=== PATIENT | female | born 1935 | race Caucasian/White ===

== ENCOUNTER → 2016-03-25 | Outpatient (CLI) | payer OTHER ==
[~2016-03-25] MED LIST: BRIM0.2S4 EACH EYE; TIMO0.5S30 EACH EYE
--- NOTE | 2016-03-26 09:05 | RSPPFT ---
DATE OF PROCEDURE: 03/25/16 COMMENTS: VOLUMES DYNAMIC: FVC and FEV1 moderately reduced. STATIC: TLC mildly increased; VTG and RV severely increased. FLOWS: FEV1% moderately reduced; FEF 25-75 severely reduced. DIFFUSION: Mildly reduced. FLOW VOLUME LOOP: Pattern of variable intrathoracic airways obstruction. IMPRESSION: Moderately severe obstructive ventilatory defect with reduction in diffusion consistent with emphysema. Significant hyperinflation is present and a mild increase in airways resistance. No significant improvements post-bronchodilator.
== END ==
LOC: HRSP 13:10
PROVIDERS: ATTEND Internal Medicine
DX: J44.9 Chronic obstructive pulmonary disease, unspecified (principal)
CPT/HCPCS: 94620

== ENCOUNTER 2016-03-31 11:30 | Day surgery (SDC) | payer OTHER ==
--- NOTE | 2016-03-27 15:23 | MH ---
cc: CYNDEE BRANDT R. STEVEN M.D. DATE OF ADMISSION: 03/31/2016 REASON FOR ADMISSION Bronchoscopy. HISTORY OF PRESENT ILLNESS Mrs. Curtis is a 80-year-old white female who presents for an abnormal CT scan. She has an interesting history that dates back at least a decade when she was first found to have an abnormality in the left lower lobe of her lung. We have a CT documenting that as far back as 2007 and she says she has known about it since at least 2003 when she had a breast cancer surgery. She was told at that time it was probably a scar but it has been followed intermittently since then because of her smoking history. Over the last several years it has been followed more carefully and she has had scans in August 2014, February 2015, July 2015 and now again February 2016, and each time this abnormality in the left lower lobe is getting larger and a thick cavity has developed. Throughout all of this she has remained essentially asymptomatic. She was a former smoker of at least [id number]. She quit smoking in 2003 when she had breast cancer. She has no persistent cough or congestion. She has no chest pain. She has never had hemoptysis and she denies shortness of breath. The remainder of her CAT scan is abnormal. She has some scattered ground-glass densities but no masses, no fluid. She has developed no lola infiltrates and she has no adenopathy in the mediastinum or hilum. Biopsies have been recommended in the past but she has refused them. She has been afraid of complications. She is now seeking another opinion regarding what to do because the most recent scan has clearly shown an increase in size and previous PET scans have shown some uptake in this lesion. She has also had two prior cancer, a breast cancer in 2004 resected and then irradiated, no evidence of recurrence to date and then a partial gastrectomy for GIST tumor which was followed by Dr. Jennings and she received chemotherapy for that for two years. No evidence of recurrence of that either at this point. PAST MEDICAL HISTORY 1. Cholecystectomy. 2. Colonic polyps, benign. 3. Diastolic heart failure followed regularly by Dr. Haque. 4. Small ascending aortic aneurysm. ALLERGIES SULFA. MEDICATIONS The only medications are timolol and another eye drop for glaucoma. FAMILY HISTORY Father of cancer of the rectum. Mother of COPD, was a smoker. Has a brother who is in good health. Five children, no serious chronic illnesses. SOCIAL HISTORY , living with her who does not smoke. Her smoking history is noted above. 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 Has been retired since the when they moved to this area from [place]. She spends a considerable amount of time in [place] though during the year with her family. Does not drink alcohol. No unusual animal exposures. REVIEW OF SYSTEMS Weight is stable. Appetite is fine. She has no chest pain. No anginal pain or chronic edema. No reflux symptoms or abdominal complaints. Appetite is fine. She does have some degenerative arthritis. PHYSICAL EXAMINATION VITAL SIGNS: Blood pressure 148/90, pulse 60, temperature 98, respiratory rate 18, sat 98% on room air. HEENT: Sclera anicteric. Pharynx is clear. NECK: Neck veins are flat. No adenopathy in the neck or supraclavicular region. CHEST: Completely clear. HEART: Regular rhythm. No harsh murmur. No peripheral edema or cyanosis. ABDOMEN: Soft. ASSESSMENT AND PLAN I have reviewed this thoroughly with Mrs. Curtis and this lesion in the left lower lobe has been present for probably a decade and it is gradually increased in size but now it is cavitated and there is a solid component to it. As I explained to her this could have certainly started out as a scar many years ago, she said she may have had a traumatic injury to her left chest when she was younger, but clearly it is changing and in light of her prior smoking history both infection and malignancy are of concern. We reviewed the possibilities for further evaluation including bronchoscopy, needle biopsy or surgery, and after thoroughly reviewing risks and benefits particularly of bronchoscopy she is agreeable to proceed with this. Will collect sputum for infectious etiologies as well as biopsies to try to establish a definitive diagnosis. I have reviewed the procedure in simple terms with her so she understands what it involves. We have also discussed risks including but not limited to anesthetic complications, bleeding or pneumothorax. She also understands that this study may not provide a definitive answer and we may have to consider a needle aspiration biopsy or even a surgical removal of this lesion which is clearly increasing in size. Further diagnostic and/or therapeutic intervention will depend on the results of the initial diagnostic studies. We are also scheduling her for PFTs prior to the bronchoscopy. R. MD NOHEMI Carmichael/ABDULLAHI /11:06 AM /3:21 PM
[~2016-03-31] VITALS: Ht 172.7 cm; Wt 60.5 kg
[2016-03-31 11:49] VITALS: BP 139/82; PULSE 54; RESP 20; TEMP 98.3; O2SAT 95
[2016-03-31] MEDS ORDERED: PROPOFOL 200 MG/20 ML AMP IV ONE (12:00)
[2016-03-31] MEDS ORDERED: ONDANSETRON HCL 4 MG/2 ML VIAL IV PUSH ONE (12:00)
[2016-03-31] MEDS ORDERED: ePHEDrine/NS 25 MG/5 ML SYR IV ONE (12:00)
[2016-03-31] MEDS ORDERED: NEOSTIGMINE 3 MG/3 ML SYR IV ONE (12:00)
[2016-03-31] MEDS ORDERED: SODIUM CHLORIDE 0.9% 1000 ML IV SCH (12:15)
[2016-03-31] MEDS ORDERED: LIDOCAINE HCL 4% PF 5 ML AMP OTHER SCH (12:30)
[2016-03-31] MEDS ORDERED: INSULIN HUMAN REGULAR 1,000 UNITS/10 ML VIAL SQ PRN (12:30)
[2016-03-31] MEDS ORDERED: METOPROLOL TARTRATE 25 MG TAB PO PRN (12:30)
[2016-03-31] MEDS ORDERED: RESP: ALBUTEROL CONC 2.5 MG/0.5 ML NEB INH SCH (12:30)
[2016-03-31] MEDS ORDERED: SODIUM CHLORID 0.9% 500 ML IV SCH (13:00)
[2016-03-31] MEDS ORDERED: LACTATED RINGER'S 1000 ML IV SCH (13:00)
[2016-03-31] MEDS ORDERED: SUGAMMADEX SODIUM 200 MG/2 ML VIAL IV PUSH ONE ×4 (13:12→16:01)
[2016-03-31] MEDS ORDERED: MIDAZOLAM HCL 2 MG/2 ML VIAL ONE (13:12)
[2016-03-31] MEDS ORDERED: fentaNYL CITRATE 250 MCG/5 ML AMP ONE (13:12)
[2016-03-31] MEDS ORDERED: EPINEPHrine HCL (1:1000) 1 MG/ML VIAL ONE (13:13)
[2016-03-31] MEDS ORDERED: LIDOCAINE HCL 2% 50 ML VIAL ONE (13:13)
--- NOTE | 2016-03-31 13:50 | RADRPT ---
EXAM DATE/TIME: 03/31/2016 13:00 [facility] COMPARISON: No previous studies available for comparison. INDICATIONS : Pre op to bronchoscopy. RADIATION DOSE: 8.19 CTDIvol (mGy) MEDICAL HISTORY : Carcinoma, breast. Chronic obstructive pulmonary disease. Cardiovascular disease Aortic aneurysm. SURGICAL HISTORY : Cholecystectomy. Tubal ligation. ENCOUNTER: Initial ACUITY: 1 day PAIN SCALE: 0/10 LOCATION: chest TECHNIQUE: Volumetric scanning of the chest was performed using inspiration and expiration protocols. The study is performed using fiduciary markers for virtual bronchoscopy. Using automated exposure control and adjustment of the mA and/or kV according to patient size, radiation dose was kept as low as reasonabl y achievable to obtain optimal diagnostic quality images. FINDINGS: LUNGS: Spiculated mass left lower lobe with cavitation is seen measuring 3.0 x 3.0 cm. Adjacent groundglass densities are noted as well. Thickened wall identified. There are some nodular densities in the left lower lobe posteriorly measuring 6 mm and 2 more inferiorly measuring 4-5 mm. Similar appearing nodul es are seen within the right middle lobe medially. Some groundglass densities are seen throughout the lungs including one in the left upper lobe measuring 1.5 cm and one within the right upper lobe [place] uring 1.9 cm. There is extensive pleural-parenchymal densities in upper lobes extending to the pleura l surface posteriorly PLEURAE: There is no pleural thickening or pleural effusion. MEDIASTINUM: The heart and great vessels demonstrate mild aneurysmal dilatation ascending aorta measuring 4.1 cm. There are small scattered mediastinal lymph nodes. AXILLAE: Right breast density measures 2.3 cm, nonspecific.. MUSCULOSKELETAL: Within normal limits for patient age. MISCELLANEOUS: The visualized upper abdominal organs demonstrate no acute abnormality. Right thyroid nodule measures 11 mm. CONCLUSION: 1. Spiculated cavitary mass left lower lobe consistent with bronchogenic carcinoma. 2. Multiple scattered groundglass densities. 3. Scattered subcentimeter pulmonary nodules. 4. Right breast density is nonspecific and measures 2.3 cm. Diagnostic mammogram and ultrasound may b e warranted if not performed recently. 5. Emphysema with biapical pleural-parenchymal densities likely scarring 6. Ascending aortic aneurysm measures 4.1 cm. Adama Quintanilla MD on March 31, 2016 at 13:29 Board Certified Radiologist. This report was verified electronically.
[2016-03-31] MEDS ORDERED: LIDOCAINE VISCOUS 2% SOLN 15 ML UDC OTHER ONE (14:16)
[2016-03-31] MEDS ORDERED: RESP: ALBUTEROL 2.5 MG/3 ML NEB (PRN) NEB (15:45)
[2016-03-31] MEDS ORDERED: DO NOT ADM ANY ANTICOAGULANT DRUGS XX PRN (15:55)
[2016-03-31 16:12] VITALS: BP 136/86; PULSE 57; RESP 16; O2SAT 93
--- NOTE | 2016-03-31 16:20 | RADRPT ---
EXAM DATE/TIME: 03/31/2016 15:47 [facility] COMPARISON: No previous studies available for comparison. INDICATIONS : Evaluate post left side lung biopsy. MEDICAL HISTORY : Carcinoma, breast. Chronic obstructive pulmonary disease. Cardiovascular disease. Aortic aneurysm. SURGICAL HISTORY : None. ENCOUNTER: Initial ACUITY: 1 day PAIN SCORE: 0/10 LOCATION: Left chest FINDINGS: 2 portable expiration views of the chest show no pneumothorax or effusion following left-sided lung b iopsy. The lungs are hyperinflated. Chronic interstitial changes noted. The heart is mildly enlarged. The degenerative thoracic spine observed. CONCLUSION: 1. Hyperinflation suggesting COPD. 2. No pneumothorax or effusion. 3. A message has been left for Dr. Alvarado at his office. Byron Valentin Jr., MD on March 31, 2016 at 16:15 Board Certified Radiologist. This report was verified electronically.
[2016-03-31 16:53] VITALS: BP 154/88; PULSE 50; RESP 18; TEMP 97.5; O2SAT 97
[2016-03-31 17:42] VITALS: BP 162/86; PULSE 55; RESP 18; O2SAT 97
--- NOTE | 2016-04-01 22:36 | EKG ---
Date Performed: 03/31/2016 Time Performed: 12:04:19 PTAGE: 80 years EKG: SINUS BRADYCARDIA LEFT BUNDLE BRANCH BLOCK ABNORMAL ECG NO PREVIOUS TRACING DOCTOR: Veronique Barclay Interpretating Date/Time 04/01/2016 22:34:57
--- NOTE | 2016-04-03 10:58 | MR ---
cc: Cherise ARMSTRONG M.D. DATE: 03/31/2016 PROCEDURE Bronchoscopy. INDICATION Left lower lobe nodular density, suspected malignancy. DETAILS OF PROCEDURE After informed consent was obtained, the patient underwent diagnostic bronchoscopy with general anesthesia. Examination of the mid to distal trachea was normal. Emanation of the right main stem bronchus, right upper, middle and lower lobe orifices was entirely unremarkable with no endobronchial pathology. Examination of the left upper lobe, lingula and lower lobe orifices again was unremarkable with no endobronchial pathology. Using navigational technology the lesion was identified to be in the posterior sub-segment of the left lower lobe. This segment was cannulated and washings were obtained for cytology and culture. Again using navigational technology biopsy forceps was sent out to the lesion and transbronchial biopsy was obtained. There was minimal bleeding. Fluoroscopy at the end of procedure revealed no pneumothorax and a chest x-ray is pending. The patient tolerated the procedure well and is being prepared to travel to [place]. MD NOHEMI Chan/ABDULLAHI /3:43 PM /10:53 AM
== END 2016-03-31 17:51 | disposition home or self-care (01) ==
LOC: HROP 11:30 → HRIP 11:36 → HROP 17:51
PROVIDERS: ATTEND Internal Medicine
DX: R91.1 Solitary pulmonary nodule (principal); J44.9 Chronic obstructive pulmonary disease, unspecified; I25.10 Atherosclerotic heart disease of native coronary artery without angina pectoris; Z87.891 Personal history of nicotine dependence; Z85.3 Personal history of malignant neoplasm of breast
CPT/HCPCS: 00520; 31628; 71010; 71250; 76000; 87015; 87070; 87102; 87116; 87205; 87206; 88112; 88300; 88305; 93005; 94664; J2405; J2710; J3010; J7611; 88307; J0171; J2250

== ENCOUNTER 2016-04-22 07:58 | Day surgery (SDC) | payer OTHER ==
[~2016-04-22] VITALS: Ht 170.2 cm; Wt 60.0 kg
[2016-04-22] VITALS (9 sets, daily range): BP systolic 93–136; BP diastolic 54–85; PULSE 52–60; RESP 16–20; TEMP 97.6–98.1; O2SAT 97–99
[2016-04-22] MEDS ORDERED: SODIUM CHLOR 0.9% 1000 ML INJ 1,000 ML IV SCH (08:45)
[2016-04-22] MEDS ORDERED: LIDOCAINE 1%/EPINEPHrine 1:100,000 SOLN 20 ML VIAL ONE (09:13)
[2016-04-22] MEDS ORDERED: MIDAZOLAM HCL 5 MG/5 ML VIAL ONE (09:30)
[2016-04-22] MEDS ORDERED: fentaNYL CITRATE 250 MCG/5 ML AMP ONE (09:30)
--- NOTE | 2016-04-22 12:54 | RADRPT ---
EXAM DATE/TIME: 04/22/2016 12:22 [facility] COMPARISON: No previous studies available for comparison. INDICATIONS : Evaluate for pneumothorax. Left lung biopsy. MEDICAL HISTORY : Carcinoma, breast. Chronic obstructive pulmonary disease. Cardiovascular disease Aortic Carcinoma, br [place]. Chronic obstructive pulmonary disease. Cardiovascular disease Aortic SURGICAL HISTORY : Cholecystectomy. Tubal ligation. ENCOUNTER: Subsequent ACUITY: 1 day PAIN SCORE: 0/10 LOCATION: Bilateral chest FINDINGS: A single frontal expiratory view of the chest was performed. The lungs are symmetrically aerated and clear. No evidence of pneumothorax. Mediastinal structures are in the midline. The cardio-mediastinal contours and bronchopulmonary markings are unremarkable for an expiratory exam . Osseous structures are intact. CONCLUSION: Negative for pneumothorax. Mass is again seen on the left.. Yusef Mckeon MD FACR on April 22, 2016 at 12:51 Board Certified Radiologist. This report was verified electronically.
--- NOTE | 2016-04-22 15:24 | RADRPT ---
EXAM DATE/TIME: 04/22/2016 09:47 [facility] COMPARISON: No previous studies available for comparison. INDICATIONS : Left lower lobe mass. SEDATION TIME: 30 minutes BIOPSY SITE: Left lung. MEDICATION(S): 1.) 1.5 mg midazolam (Versed) IV 2.) 75 mcg fentanyl (Sublimaze) IV DEVICE(S): 1.) 18 gauge Wolf blunt needle 2.) 20 gauge Temno core biopsy needle MEDICAL HISTORY : Carcinoma, breast. Chronic obstructive pulmonary disease. Aneurysm, abdominal. Cardiovascular disease . SURGICAL HISTORY : Cholecystectomy Tubal ligation. ENCOUNTER: Initial ACUITY: 1 day PAIN SCORE: 0/10 LOCATION: Left lower chest A total of four core specimen(s) were obtained and sent to the laboratory for pathologic evaluation. PROCEDURE: 1. CT guided lung biopsy. Prior to the procedure informed consent was obtained. Any appropriate prior imaging studies were rev iewed. Using automated exposure control and adjustment of the mA and/or kV according to patient size, radiation dose was kept as low as reasonably achievable to obtain optimal diagnostic quality images. The site was prepped in a sterile fashion. Full sterile technique was used, including cap, mask, grazyna rile gloves and gown and a large sterile sheet. Hand hygiene and 2% chlorhexidine and/or betadine/al cohol prep was utilized per protocol for cutaneous antisepsis. The skin and subcutaneous tissues wer e infiltrated with local anesthetic solution. Under CT guidance 18 gauge blunt needle was placed down to the mass in the left lower lobe and 4 core s obtained. Material was submitted for pathology and culture. Follow-up CT scan reveals no pneumothorax. Conscious sedation was performed with the prescribed dosages and duration as above in the presence of an independent trained radiology nurse to assist in the monitoring of the patient. EKG and oximetry remained stable throughout the procedure. The patient tolerated the procedure well and there were no complications. The patient was sent to Radiology Outpatient Unit in stable condition. CONCLUSION: Uncomplicated CT guided biopsy left lower lobe lung mass. Pathology and culture are pending.. Yusef Mckeon MD FACR on April 22, 2016 at 15:22 Board Certified Radiologist. This report was verified electronically.
== END 2016-04-22 14:35 | disposition home or self-care (01) ==
LOC: HRAD 07:58 → HRIP 08:07 → HRAD 14:35
PROVIDERS: ATTEND Internal Medicine
DX: R91.8 Other nonspecific abnormal finding of lung field (principal); I25.10 Atherosclerotic heart disease of native coronary artery without angina pectoris; J44.9 Chronic obstructive pulmonary disease, unspecified
CPT/HCPCS: 32405; 71010; 77012; 87015; 87070; 87102; 87116; 87176; 87205; 87206; 88305; 88333; 88341; 88342; J2250; J3010; J7030